=== PATIENT | female | born 2000 | race Caucasian/White ===

== ENCOUNTER → 2023-10-18 | Outpatient (REF) | payer OTHER | LOC: MRI 12:12 | PROVIDERS: ATTEND Internal Medicine | DX: M51.36 Other intervertebral disc degeneration, lumbar region (principal); M54.50 Low back pain, unspecified | CPT/HCPCS: 72148 ==

== ENCOUNTER → 2024-01-04 | Outpatient (REF) | payer OTHER | LOC: NM 09:30 | PROVIDERS: ATTEND Internal Medicine | DX: K80.80 Other cholelithiasis without obstruction (principal); R10.11 Right upper quadrant pain; K76.0 Fatty (change of) liver, not elsewhere classified | CPT/HCPCS: 78227; A9537 ==

== ENCOUNTER → 2024-01-26 | Day surgery (SDC) | payer OTHER ==
[2024-01-24 09:18] LABS: HEMATOCRIT 43.3 % (34.2-44.1); MEAN CORPUSCULAR HGB CONC 32.3 g/dL (31-35); MEAN CORPUSCULAR VOLUME 89.8 fL (81-99); NEUTROPHILS % 54.2 % (38.7-80.0); PLATELET COUNT 246 x10e3/uL (140-360); RED BLOOD COUNT 4.82 x10e6/uL (3.6-5.1); RED CELL DISTRIBUTION WIDTH 12.6 % (11.7-14.4); WHITE BLOOD COUNT 7.41 x10e3/uL (4.8-10.8)
[2024-01-24 09:19] LABS: BASOPHILS % 0.4 % (0.0-1.0); EOSINOPHILS # (AUTO) 0.1 (0.0-0.4); EOSINOPHILS % 1.5 % (0.0-6.0); LYMPHOCYTES # (AUTO) 2.7 (1.0-3.2); LYMPHOCYTES % 35.8 % (18.0-39.1); MONOCYTES # (AUTO) 0.6 (0.2-0.8); MONOCYTES % 7.8 % (4.4-11.3)
[2024-01-24 10:02] LABS: ALBUMIN/GLOBULIN RATIO 1.8 (0.8-2.0); ANION GAP 15.9 mmol/L (8-16); BILIRUBIN,TOTAL 0.6 mg/dL (0.2-1.2); CALCIUM 10.1 mg/dL (8.4-10.2); CREATININE, SERUM 0.81 mg/dL (0.57-1.11); POTASSIUM 3.9 mmol/L (3.5-5.1); TOTAL PROTEIN 7.8 g/dL (6.5-8.1)
[~2024-01-26] MED LIST: ACETAMINOPHEN 1000 MG/100 ML 100 ML IV ONE; BUPIVACAINE 0.25% 30ML SDV ONE; DEXAMETHASONE SOD PHOS INJ 4 MG/ML SDV ONE; FENTANYL CITRATE/PF 100MCG/2 ML INJ ONE; HYDROCODONE/APAP 7.5MG-325MG 1 EA TAB ONE; KETOROLAC TROMETHAMINE 30 MG/ML VIAL ONE; LEVOTHYROXINE75 MCG PO; LIDOCAINE HCL 2% LOCAL INJ 5 ML SDV VIAL INJ ONE; LINZESS290 MCG PO; MIDAZOLAM HCL 2 MG/2 ML VIAL ONE; NEXIUM40 MG PO; ONDANSETRON HCL INJ 2MG/ML 2ML 2 MG/ML VIAL ONE; PROPOFOL IV EMULSION 10 MG/ML 20 ML VIAL ONE; ROCURONIUM BROMIDE 10 MG/ML 5ML VIAL IV ONE; SEVOFLURANE INHAL SOLN 250 ML PEN BTL ONE; SLYND4 MG PO; VITAMIN D3 COM1 EACH PO
[2024-01-26] MEDS: LACTATED RINGER'S 1,000 ML ONE (07:56)
[2024-01-26] MEDS: FENTANYL CITRATE/PF 100MCG/2 ML INJ IV ONE ×4 (10:20→10:35)
[2024-01-26] MEDS: HYDROCODONE/APAP 7.5MG-325MG 1 EA TAB PO ONE (10:48)
[2024-01-26 11:13] VITALS: BP 132/79; PULSE 99; RESP 19; O2SAT 99
== END | disposition home or self-care (01) ==
LOC: OR 07:01
PROVIDERS: ATTEND Surgery
DX: K80.10 Calculus of gallbladder with chronic cholecystitis without obstruction (principal); K82.8 Other specified diseases of gallbladder; K76.0 Fatty (change of) liver, not elsewhere classified; E78.5 Hyperlipidemia, unspecified; E03.9 Hypothyroidism, unspecified; K21.9 Gastro-esophageal reflux disease without esophagitis; Z01.812 Encounter for preprocedural laboratory examination; Z79.899 Other long term (current) drug therapy
CPT/HCPCS: 36415; 47562; 80053; 81025; 85025; 88304; C1766; J0131; J1100; J1885; J2001; J2250; J2405; J2704; J3010; J7121